=== PATIENT | male | born 1950 | race Caucasian/White ===

== ENCOUNTER 2019-02-21 10:12 | Inpatient (IN) ==
[2019-02-21] MEDS ORDERED: NORCO-10 PO PRN (12:24)
[2019-02-21] MEDS ORDERED: VANCOMYCIN IV PER PHARMACY MISC SCH (12:30)
--- NOTE | 2019-02-21 12:48 | EKG Report ---
Test Performed on : 02/21/2019 12:41:30 PM Test Reason : chest pain Blood Pressure : / mmHG Vent. Rate : 065 BPM Atrial Rate : 065 BPM P-R Int : 170 ms QRS Dur : 190 ms QT Int : 458 ms P-R-T Axes : 000 -71 097 degrees QTc Int : 476 ms AV dual-paced rhythm Abnormal ECG No previous ECGs available Confirmed by Kush MACIAS, Fransisco Mckeon ([id number]) on 02/21/2019 5:33:34 PM
--- NOTE | 2019-02-21 12:58 | Diag Imaging Result Doc PS360 ---
CHEST-PORTABLE - 02/21/2019 INDICATION: congestion COMPARISON: None FINDINGS: There is mild cardiomegaly. There is a right-sided dual-chamber pacemaker in good position. Pulmonary vascularity is normal. No infiltrates or edema. No pneumothorax or pleural effusion. IMPRESSION: Mild cardiomegaly but no acute disease. Electronically signed by Weston Carlson 02/21/2019 12:56 PM
[2019-02-21 13:38] LABS: BASO# 0.05 X1000 (0.0-0.2); BASO% 0.2 % (0.0-0.8); EOS# 0.24 X1000 (0.0-0.7); EOS% 1.2 % (0.0-10.0); HEMATOCRIT 42.4 % (42.0-52.0); HEMOGLOBIN 13.6 g/dL (14.0-18.0); IMM GRAN# 0.06 X1000 (0.0-0.04); IMM GRAN% 0.3 % (0.0-0.5); LYMPH# 1.21 X1000 (1.2-3.4); MCH 28.9 PG (27-31); MCHC 32.1 g/dL (33-37); MONO# 1.11 X1000 (0.11-0.59); MONO% 5.5 % (1.7-9.3); MPV 10.7 FL (7.4-10.4); NEUT# 17.66 X1000 (1.4-6.5); NEUT% 86.8 % (42.2-75.2); PLT 255 X1000 (130-400); RBC 4.71 XMIL (4.7-6.1); WBC 20.33 X1000 (4.8-10.8)
[2019-02-21 13:50] LABS: AGAP 13; ALB/GLOB RATIO 1.2; ALBUMIN 4.1 g/dL (3.5-5.0); ALKALINE PHOSPHATASE 135 U/L (32-122); BUN 13 mg/dL (8-22); CALCIUM 9.6 mg/dL (8.8-10.2); CHLORIDE 99 mmol/L (98-107); COSMO 280; CREATININE 0.7 mg/dL (0.7-1.2); ESTIMATED GFR > 60; GLUCOSE 99 mg/dL (70-104); GOT 21 U/L (10-34); GPT 11 U/L (10-44); POTASSIUM 4.7 mmol/L (3.5-5.1); SODIUM 140 mmol/L (136-145); TCO2 28 mmol/L (25-35); TOTAL BILIRUBIN 0.42 mg/dL (0.20-1.00); TOTAL PROTEIN 7.6 g/dL (6.3-8.3)
[2019-02-21 13:59] LABS: LYMPHS 8 % (21-51); MONO 1 % (1-9); SEGS 89 % (42-75)
[2019-02-21] MEDS ORDERED: VANCOMYCIN 2,000 MG in NS 500 ML IV ONE (15:00)
[2019-02-21] MEDS: ZOSYN 3.375 GM in NS 50 ML IV SCH ×2 (15:48→23:34)
[2019-02-21] MEDS: 1/2 NS 1,000 ML IV SCH (15:48)
--- NOTE | 2019-02-21 17:22 | Diag Imaging Result Doc PS360 ---
EXAM: FOOT 2 VIEWS RIGHT INDICATION: Cellulitis of right foot TECHNIQUE: 2 views COMPARISON: None. FINDINGS: No discrete bony erosion is identified to indicate osteomyelitis on the current study. There is no discrete fracture, dislocation, or significant intrinsic osseous lesion. The visualized joint spaces are essentially unremarkable. There is mild soft tissue edema at the posterior aspect of the ankle. IMPRESSION: Mild soft tissue edema but no definite acute osseous abnormality and no radiographic evidence of osteomyelitis on the current study. Electronically signed by Gurinder Toledo 02/21/2019 5:20 PM
[2019-02-21] MEDS: LIPITOR PO SCH (23:33)
--- NOTE | 2019-02-22 02:27 | GENERAL SURGERY CONSULTATION ---
DATE: 02/21/2019 CONSULTING PHYSICIAN: Dae Geiger MD. REASON FOR CONSULTATION: Ischemic changes of right toes. CHIEF COMPLAINT: Ischemic changes to his toes. HISTORY OF PRESENT ILLNESS: This is a 68-year-old gentleman with a longstanding history of sick sinus syndrome and tobacco abuse. Over the weekend he noticed some changes to his right first and second toes with distal discoloration. He came, was admitted by Dr. Geiger, started on antibiotics and local wound care. He has been in his usual state of health. He has had no prior vascular procedures. No significant pain associated. MEDICAL HISTORY: Sick sinus syndrome, tobacco abuse. SURGICAL HISTORY: He has had no vascular procedures. No abdominal surgery. SOCIAL HISTORY: He smokes a pack a day. No alcohol. He is retired reefer truck driver. FAMILY HISTORY: Reviewed, noncontributory. REVIEW OF SYSTEMS: Ten-point review of systems negative other than what is mentioned in HPI. MEDICATIONS: He does take aspirin, but he has been taken this in several days. PHYSICAL EXAMINATION: Vital signs: He is afebrile, pulse 66, blood pressure 149/60, oxygen saturation 100%. General: He is alert. HEENT: No scleral icterus. No cervical mass. Cardiovascular: Normal rate. Pulmonary: No increased work of breathing. Abdomen: Soft, nontender. There is no pulsatile mass. Integumentary: Warm, dry. Psychiatric: Appropriate affect. Neurologic: No gross deficits. Vascular: Peripheral vascular, he has palpable pedal pulses. Palpable popliteal and palpable femoral pulses. Musculoskeletal: He has dry ischemic changes to the distal aspect of his first and second toes and the left third toe. Otherwise, not a lot of cellulitis. LABS: White count 20, hematocrit 42, platelets 255,000. Creatinine 0.7. LFTs are normal. ASSESSMENT AND PLAN: This is a 68-year-old gentleman with ischemic changes to the distal 1st and 2nd toes. I do not see obvious signs of infection, there maybe some mild associated cellulitis, but no purulence. The changes are dry. He has palpable pulses and a cardiac history. This is worrisome for cardioembolic etiology. I would recommend obtaining an echocardiogram and an aorta duplex to rule out any possible proximal embolic sources. Otherwise, would continue Betadine paint as current and we will follow along surgically. We will allow these to declare. He may require toe amputation, we discussed this, but not emergently. cc: MD Dae Daley MD
[2019-02-22] MEDS: ZOSYN 3.375 GM in NS 50 ML IV SCH ×4 (04:30→23:14)
[2019-02-22] MEDS: VANCOMYCIN 1,250 MG in NS 250 ML IV SCH ×2 (05:08→18:36)
[2019-02-22] MEDS: PRINIVIL PO SCH (10:21)
--- NOTE | 2019-02-22 11:53 | HISTORY AND PHYSICAL ---
HISTORY OF PRESENT ILLNESS: Mr. Fairchild, who is a 68-year-old white gentleman with cellulitis of the right foot. He had some black skin over the right big toe and the 2nd toe after ulceration. It started about 12 days ago when he was trying to work in the [employer] and had his tennis shoes on. He was pressing his feet with the shovel and he did not know he rubbed hard for about 30 minutes to an hour. When he took his shoes off, he had blisters. The blisters broke and thereafter the skin started changing color and came to black color. He had some infection afterwards. He did not come to the office until about the when he had a lot of pain in the foot. At that time, I wanted to admit him to the hospital. However, he wanted to wait for 1 more day and that is what he is doing. We have admitted him for cellulitis of the right foot and to get surgical consultation. PAST MEDICAL HISTORY: Mr. Fairchild has a history of sick sinus syndrome and has a pacemaker. He has hypertension. He has degenerative disk disease in the lumbar spine. He got injured while at work also. MEDICATIONS: 1. Lisinopril 20 mg daily. 2. Hydrocodone. 3. Atorvastatin. REVIEW OF SYSTEMS: Other than pain and black discoloration of the toes, it is noncontributory review of systems and is unremarkable otherwise. PHYSICAL EXAMINATION: GENERAL: The patient is alert. VITAL SIGNS: Temperature 100.6 degrees Fahrenheit, pulse 68 per minute, respiratory rate 20, blood pressure 115/64. HEENT: Head normocephalic. Pupils PERRLA. Fundus examination normal. ENT examination unremarkable. NECK: Supple, JVP normal. There is no evidence of lymphadenopathy, thyroid enlargement, pedal edema, calf tenderness, anemia, cyanosis or clubbing. EXTREMITIES: He has sores on his right big toe as well as on the 2nd toe with some black discoloration of the tissues. Pedal pulses are well felt. BREASTS: Normal. CHEST: Left-sided infraclavicular placement of the pacemaker generator. LUNGS: Clear on auscultation. PMI in the normal position. HEART: Sounds normal. No murmur, gallop or rub noted. ABDOMEN: Nondistended. Hernial orifices normal. No guarding, rigidity, free fluid, masses, or organomegaly. Bowel sounds normal. RECTAL: Deferred. FRY COOK: Higher functions normal. Cranial nerves normal. Motor and sensory system examination unremarkable. Deep tendon reflexes normal. Plantars downgoing. Skull and spine examination reveals painful movements on the lumbar spine which is restricted. SLR positive. No cerebellar signs or signs of meningeal irritation on locomotor exam. SKIN: Unremarkable. IMPRESSION: Cellulitis of the foot on the right side with ulcerations on the big and 2nd toe and some black discoloration of the skin which has become gangrenous. Circulation appears to be normal. PLAN: Start IV antibiotics after the cultures and get a surgical consultation. cc: Dae Geiger MD
--- NOTE | 2019-02-22 12:23 | PROGRESS NOTE ---
DATE: 02/22/2019 SUBJECTIVE: Mr. Fairchild was admitted with cellulitis of the right foot. He has some gangrenous changes in the skin at the base of the right great and 2nd toe. He is on IV vancomycin as well as Zosyn and the infection seems to have improved some. We are going to order echocardiogram and flow studies, which flow studies were done this morning. OBJECTIVE: He had a foot x-ray which revealed mild soft tissue edema, but no ]changes of osteomyelitis. PLAN: We will continue with the current management on him. -5 cc: Dae Geiger MD MTDD
[2019-02-22] MEDS: 1/2 NS 1,000 ML IV SCH (17:37)
--- NOTE | 2019-02-22 18:09 | ECHO REPORT ---
ORDER DATE: 02/22/2019 REQUESTING PHYSICIAN: Dr. Geiger. M-MODE MEASUREMENTS: Left ventricle end diastole: 4.9. Left ventricle end systole: 3.2. Posterior wall: 1.4. Interventricular septum: 1.4. Left atrium: 3.6. Aortic diameter: 3.9. SUMMARY OF 2-DIMENSIONAL IMAGIN. Left ventricular function is normal. Ejection fraction is estimated visually at 65%. There is no wall motion abnormality noted. A pacemaker/defibrillator lead is present. 2. The aortic valve looks grossly normal. Color flow mapping unremarkable. There is a mild degree of aortic regurgitation. 3. The pulmonic valve also shows a mild degree of regurgitation. 4. The tricuspid valve shows a mild degree of regurgitation. Pulmonary pressure is estimated at 27 mmHg. 5. The mitral valve looks normal. Color flow mapping unremarkable. 6. Pulsed wave Doppler of mitral inflow shows mild reversal of the E/A ratio. The ratio is 0.6. 7. Tissue Doppler of septal and lateral mitral annulus averages 6 cm. There is no significant diastolic dysfunction. The diastolic function is probably within normal range. 9. There is no evidence of mass or thrombus. 10.The left atrium appears to be moderately enlarged. SUMMARY: This study shows: 1. Excellent left ventricular systolic function. 2. Moderately enlarged left atrium. 3. No significant valvular abnormality. There is a mild degree of aortic regurgitation. The pulmonary pressure is estimated at 27 mmHg. Clinical correlation recommended. cc: MD Dae Gregory MD
[2019-02-22] MEDS: LIPITOR PO SCH ×2 (19:46→20:12)
[2019-02-23] MEDS: VANCOMYCIN 1,250 MG in NS 250 ML IV SCH ×2 (05:19→18:15)
[2019-02-23] MEDS: PRINIVIL PO SCH (10:00)
[2019-02-23] MEDS: ZOSYN 3.375 GM in NS 50 ML IV SCH ×3 (10:00→20:22)
--- NOTE | 2019-02-23 10:04 | PROGRESS NOTE ---
DATE: 02/23/2019 SUBJECTIVE: The patient says he is getting a little feeling into the toe. He has some numbness down there because of some lumbar disk disease anyway. OBJECTIVE: Vital Signs: Blood pressure is 130/80, then a second check was 96/55, respirations 16, pulse 66, temperature 98.5 degrees Fahrenheit. HEENT: Normocephalic. EOMS intact. PERRLA. Throat clear. Lungs: Clear to auscultation and percussion without rhonchi, rales or wheezes. Heart: Regular rate and rhythm without murmurs, gallops, friction rubs. Abdomen: Soft. Active bowel sounds. No organomegaly or tenderness. Extremities: Right foot great toe is dark on the end. X-RAYS: Echocardiogram was done to see if there was any possibility of embolic phenomenon from the heart, but the echo was normal. The patient is being treated for cellulitis at this time. ASSESSMENT: 1. Cellulitis, right great toe and right foot. 2. Possible embolic phenomenon. PLAN: Continue antibiotics. Surgery is also seeing him. cc: MD Dae Segovia Jr, MD
[2019-02-23] MEDS: 1/2 NS 1,000 ML IV SCH ×2 (11:32→12:43)
--- NOTE | 2019-02-23 13:43 | GENERAL SURGERY PROGRESS NOTE ---
DATE: 02/23/2019 SUBJECTIVE: The patient is doing okay. No acute events overnight. OBJECTIVE: General: He is awake, alert, oriented x3. No acute distress. Extremities: The left foot was examined. The 1st and 2nd toes have dry gangrene and some mild surrounding erythema. No gross pus. IMAGING: The echocardiogram showed no evidence of mass or valvular abnormalities. ASSESSMENT AND PLAN: A 68-year-old male with dry gangrene of left 1st and 2nd toes with some surrounding cellulitis. We will continue the antibiotics and allow the skin to declare itself. Future debridement is anticipated of these wounds. cc: MD Dae Lema MD
[2019-02-23] MEDS: LIPITOR PO SCH (20:22)
[2019-02-24] MEDS: VANCOMYCIN 1,250 MG in NS 250 ML IV SCH ×2 (04:51→17:13)
[2019-02-24] MEDS: ZOSYN 3.375 GM in NS 50 ML IV SCH ×4 (04:51→20:11)
[2019-02-24 07:28] LABS: BASO# 0.04 X1000 (0.0-0.2); BASO% 0.4 % (0.0-0.8); EOS# 0.23 X1000 (0.0-0.7); EOS% 2.6 % (0.0-10.0); HEMATOCRIT 36.6 % (42.0-52.0); HEMOGLOBIN 11.8 g/dL (14.0-18.0); LYMPH# 1.22 X1000 (1.2-3.4); LYMPH% 13.7 % (20.5-51.1); MCH 28.9 PG (27-31); MCHC 32.2 g/dL (33-37); MCV 89.5 FL (81-99); MONO% 10.1 % (1.7-9.3); MPV 10.7 FL (7.4-10.4); NEUT# 6.53 X1000 (1.4-6.5); NEUT% 73.2 % (42.2-75.2); PLT 222 X1000 (130-400); RBC 4.09 XMIL (4.7-6.1); RDW 14.8 % (11.5-14.5); WBC 8.92 X1000 (4.8-10.8)
[2019-02-24] MEDS: PRINIVIL PO SCH (10:15)
--- NOTE | 2019-02-24 12:11 | PROGRESS NOTE ---
DATE: 02/24/2019 SUBJECTIVE: The patient says he feels fine. OBJECTIVE: Vital signs: Blood pressure is 120/69, respirations 16, pulse 70, temp 98 degrees Fahrenheit. HEENT: He is normocephalic. EOMS intact. PERRLA. Throat clear. Lungs: Clear to auscultation and percussion without rhonchi, rales, or wheezes. Heart: Regular rate and rhythm without murmurs, gallops, or friction rubs. Abdomen: Soft. Active bowel sounds. No organomegaly or tenderness. Extremities: Right great toe has dry gangrene. Culture grew out Staphylococcus lentus. ASSESSMENT: Dry gangrene of toe and foot on the right. PLAN: Continue IV antibiotics. Will probably need debridement in the future. Continue care. cc: MD Dae Segovia Jr, MD
[2019-02-24] MEDS: 1/2 NS 1,000 ML IV SCH (12:15)
[2019-02-24] MEDS: LIPITOR PO SCH (20:10)
[2019-02-25] MEDS: ZOSYN 3.375 GM in NS 50 ML IV SCH ×2 (04:44→08:40)
[2019-02-25] MEDS: VANCOMYCIN 1,250 MG in NS 250 ML IV SCH (04:44)
[2019-02-25 07:30] LABS: BASO# 0.06 X1000 (0.0-0.2); BASO% 0.7 % (0.0-0.8); EOS# 0.24 X1000 (0.0-0.7); EOS% 2.8 % (0.0-10.0); HEMATOCRIT 38.1 % (42.0-52.0); HEMOGLOBIN 12.2 g/dL (14.0-18.0); LYMPH% 18.4 % (20.5-51.1); MCH 28.7 PG (27-31); MCV 89.6 FL (81-99); MONO# 0.86 X1000 (0.11-0.59); MONO% 9.9 % (1.7-9.3); MPV 10.7 FL (7.4-10.4); NEUT# 5.92 X1000 (1.4-6.5); NEUT% 68.2 % (42.2-75.2); PLT 273 X1000 (130-400); RBC 4.25 XMIL (4.7-6.1); RDW 14.3 % (11.5-14.5); WBC 8.68 X1000 (4.8-10.8)
[2019-02-25 07:54] VITALS: BP 134/80
--- NOTE | 2019-02-25 08:24 | GENERAL SURGERY PROGRESS NOTE ---
DATE: 02/24/2019 SUBJECTIVE: The patient is doing well. No new events overnight. OBJECTIVE: Vitals: He is afebrile. Vital signs are stable. General: He is awake, alert, oriented x3. No acute distress. Extremities: The right [*] 1st and 2nd toes again show stable dry gangrene at the tips. There is minimal erythema. ASSESSMENT AND PLAN: A 68-year-old male with gangrene of the 1st and 2nd toes on the left [*] with some mild cellulitis but no darryl infection. I would be in favor of letting him be discharged to follow with DR. Salcedo in the near future for future debridement. cc: MD Dae Lema MD
[2019-02-25] MEDS: PRINIVIL PO SCH (08:40)
--- NOTE | 2019-02-25 09:14 | PROGRESS NOTE ---
DATE: 02/25/2019 SUBJECTIVE: Mr. Fairchild looks better. He still has some darkening of the skin, but this is probably just superficial layer of skin and it is not deep. The infection has cleared up. The wound culture grew Staph lentus. We will check with Dr. Underwood and probably discharge him today. -0 cc: Dae Geiger MD
--- NOTE | 2019-02-25 20:30 | VASCULAR LAB ---
PROCEDURE NAME: Arterial Bilateral Legs - 02/21/2019 REFERRING PHYSICIAN: Juanjo. READING PHYSICIAN: Analia. LITIGATION LEGAL ASSISTANT: Rancho. INDICATION: Gangrene of the toes. FINDINGS: The pulse volume waveforms show good pulsatile flow at the thigh, calf, ankle, and digital level bilaterally. Segmental pressures: Right brachial 105, low thigh 165, popliteal 135, dorsalis pedis 142, posterior tibial 165, toe pressure not measured, JS 1.5. Left brachial pressure 107, low thigh 139, popliteal 130, dorsalis pedis 131, posterior tibial 133, toe pressure 104, JS 1.2. The waveforms of the digits were evaluated. There was some blunting of the right 3rd, 4th, and 5th toe waveforms, but otherwise there was pulsatile flow at each digit. INTERPRETATION: This is a normal appearing lower extremity arterial study. There might be some small vessel disease at the terminal branches of the right lateral digits. cc: MD Dae Lema MD
== END 2019-02-25 11:08 | disposition home or self-care (01) | DRG 603 ==
LOC: DIRADM 10:12 → EDIPHOLD 11:56 → 3N 15:28
PROVIDERS: ADMIT Internal Medicine; ATTEND Internal Medicine